=== PATIENT | male | born 1980 | race African-American/Black ===

== ENCOUNTER 2023-12-14 13:50 | Outpatient (POV) | payer MEDICARE, SELFPAY ==
[2023-12-14 13:52] VITALS: BP 139/67; PULSE 86; RESP 20; O2SAT 98; BMI 43.7
--- NOTE | 2023-12-14 13:59 | A.OFFVIS_ITS ---
HPI Data of Consult Patient: new to practice Consult date: 12/14/23 Requesting Physician: Salome Courtney APRN Primary Care Provider: Markell Sutherland Consult Narrative Reason for consult: Shoulder pain, left knee pain, right hand pain History of present illness: Mr. Salazar is a 43 year old male who presents today as a new patient. He is a referral from Dr. Markell Sutherland office. Today he rates his pain a 5 out of 10. Patient states his pain is in multiple areas including his left knee, bilateral shoulders with the left shoulder worse and his right hand. Patient states that these have been going on for years and progressively worsened. He states that his shoulder pain has been at least 15 years and is a chronic achy sensation that does radiate down his scapula and has in the past altered his range of motion. He states right now his range of motion has gotten better however he still has pain within the joint and going down his left scapula. He states his right hand has been going on for at least 6 years however the last 2 years have been progressively worse. He states that there is no specific injury or trauma that initially started this. He describes it as a constant soreness with intermittent sharp shooting pains and tightness. He states that it is oftentimes worse with increased activity or riding. Patient does state his left knee pain has been going on since he had his below the knee amputation and is not as much bothersome compared to his shoulder and hand pain. He does state that the pain does interfere with his ability to perform activities of daily living such as cooking and cleaning. Patient does state that he has had prior x-ray and MRI of his left shoulder that did show moderate to severe arthritis. He states this was done at [facility]. Patient denies any prior surgery on his shoulder or his neck. Patient states he has had injections in the past on a couple of different occasions however he is unsure whether or not if they were ever intra-articular injections or possibly just trigger point injections. He does state that it has been years since he has had any injections. Patient states in the past he did go to the pain clinic there in [place] however there was not much they could do for him and I offered opioid pain medications and he did not want to do that so he stopped going. Patient has tried [id number] medications such as Tylenol and ibuprofen along with heat and ice and topicals. Patient states that he is in kidney disease and no longer can tolerate any NSAIDs due to this. He states he did have a kidney transplant in the past and that he does follow-up regarding this every 3 to 4 months. Patient is interested in any help we may be able to provide.Patient is not on any scheduled medications. His Julio has been reviewed and is appropriate. CC: Salome Courtney APRN [facility] Disclaimer: The information contained in this section may have been updated after the patient was seen, as this information can be updated by other users. Surgical History (Updated 12/14/23 @ 14:12 by Leila Pittman RN) History of cholecystectomy Social History (Updated 12/14/23 @ 14:12 by Leila Pittman RN) Smoking Status: Former smoker alcohol intake: never current occupational status: unemployed Travel in the last 8 weeks: None Review of Systems Review of Systems Review of systems:: pertinent systems reviewed and negative unless documented below Review of systems (narrative): Review of Systems: General: No recent weight changes, no fever, no sleep disturbances Respiratory: No cough, no shortness of air, no recurring pulmonary infections Cardiovascular/peripheral vascular: No chest pain, no palpitations, no edema, no shortness of breath Gastrointestinal: No new onset incontinence, normal bowel movements reported Genitourinary: No new onset incontinence Musculoskeletal: Bilateral shoulder pain, left knee pain, right hand pain Psychiatric: [Normal mood/affect] Neurological: [Denies weakness in extremities], [denies balance issues] Meds Home Medications and Allergies Home Medications Medication Instructions Recorded Confirmed Type carvedilol 25 mg tablet 25 mg PO BID 12/14/23 12/14/23 History ergocalciferol (vitamin D2) 1,250 1,250 mcg PO WEEKLY 12/14/23 12/14/23 History mcg (50,000 unit) capsule hydrochlorothiazide 25 mg tablet 25 mg PO DAILY 12/14/23 12/14/23 History insulin glargine-yfgn 100 unit/mL 48 unit SQ DAILY 12/14/23 12/14/23 History (3 mL) subcutaneous pen (Semglee (insulin glargine-yfgn) Pen) magnesium oxide 400 mg (241.3 mg 400 mg PO BID 12/14/23 12/14/23 History magnesium) tablet nifedipine 60 mg tablet,extended 60 mg PO BID 12/14/23 12/14/23 History release pantoprazole 40 mg tablet,delayed 40 mg PO DAILY 12/14/23 12/14/23 History release semaglutide 0.25 mg or 0.5 mg (2 0.25 mg SQ WEEKLY 12/14/23 12/14/23 History mg/3 mL) subcutaneous pen injector (Ozempic) sodium bicarbonate 650 mg tablet 650 mg PO BID 12/14/23 12/14/23 History New Prescriptions to Start Prescriptions: Allergies Allergy/AdvReac Type Severity Reaction Status Date / Time lisinopril Allergy Verified 12/14/23 14:03 losartan Allergy Verified 12/14/23 14:03 Objective Narrative: Physical Exam: General: Alert and oriented x3, no acute distress, pleasant and cooperative Lungs: Respirations even and unlabored, symmetrical chest expansion Eyes: PERRL Musculoskeletal: Flexion and extension of bilateral shoulders somewhat guarded secondary to pain, [antalgic gait noted] Neurological: Speech clear, no gross sensory deficit Assessment and Plan *Assessment and plan (1) Right hand pain: Status: Acute Category: Medical Code(s): M79.641 - Pain in right hand (2) Bilateral shoulder pain: Status: Acute Qualifiers: Chronicity: chronic Qualified Code(s): M25.511 - Pain in right shoulder; M25.512 - Pain in left shoulder; G89.29 - Other chronic pain Category: Medical Code(s): M25.511 - Pain in right shoulder; M25.512 - Pain in left shoulder (3) Left knee pain: Status: Acute Qualifiers: Chronicity: chronic Qualified Code(s): M25.562 - Pain in left knee; G89.29 - Other chronic pain Category: Medical Code(s): M25.562 - Pain in left knee Plan Patient is experiencing worsening pain in his bilateral shoulders with limited range of motion. I have discussed with the patient that he may benefit from bilateral shoulder intra-articular injection. Risk and benefits were discussed with the patient and he would like to proceed forward with this plan of care. I have also discussed with the patient due to his shoulder and right hand symptoms that it may be coming from his cervical spine. Patient denied ever having any prior cervical imaging. I will order x-ray imaging with the plan to proceed forward with more advanced imaging at a later date. I will order the patient a compounded cream without diclofenac in it. Patient will be scheduled for bilateral shoulder intra-articular injections. Patient is a diabetic and I have counseled him to check his sugar prior to coming in for these injections and to take his medications as prescribed. Patient was counseled if his sugar is around 300 or above we will have to reschedule these injections. Patient acknowledges understanding and agrees with plan of care. Patient has been instructed to contact the clinic with any concerns before the next appointment. Dr. Steve has reviewed this note and agrees with this plan of care. This note was dictated using voice recognition software and make contain errors or omissions.
== END 2023-12-14 23:59 ==
PROVIDERS: PCP Family Medicine; Visit Provider Nurse Practitioner Family
DX: M79.641 Pain in right hand (principal); M25.511 Pain in right shoulder; M25.512 Pain in left shoulder; G89.29 Other chronic pain; M25.562 Pain in left knee
CPT/HCPCS: 99202; G0463

== ENCOUNTER 2023-12-21 14:01 | Outpatient (CLI) | payer MEDICARE, SELFPAY ==
--- NOTE | 2023-12-21 14:09 | XR_ITS ---
FINAL REPORT CLINICAL HISTORY: BUE RADICULOPATHY SYMPTOMS COMPARISON: None FINDINGS: 5 views of the cervical spine were obtained. There is no acute fracture. The vertebral heights are preserved. There is no subluxation. The neuroforamen appear patent. IMPRESSION: No acute process. Reviewed, Interpreted and Dictated by Elvin Sheldon MD Transcribed by KEVIN Mcnamara Authenticated and [facility]
== END 2023-12-21 23:59 | disposition home or self-care (01) ==
LOC: LAB 14:03
PROVIDERS: PCP Family Medicine; Visit Provider Nurse Practitioner Family
DX: M54.2 Cervicalgia (principal); M54.10 Radiculopathy, site unspecified
CPT/HCPCS: 72050

== ENCOUNTER 2024-01-05 08:42 | Day surgery (SDC) | payer MEDICARE, SELFPAY ==
[2024-01-05 08:52] VITALS: BP 147/79; PULSE 93; RESP 16; TEMP 36.6; O2SAT 96; BMI 43.7
[2024-01-05 09:12] VITALS: BP 135/86; PULSE 89; RESP 18; O2SAT 97
[2024-01-05] MEDS: methylPREDNISolone ACETATE 80MG/ML VIAL 80 MG (09:12)
[2024-01-05] MEDS: BUPIVACAINE 0.25% 10ML INJ 25 MG IJ (09:12)
[2024-01-05] MEDS: LIDOCAINE 1% 5ML PF VIAL 5 ML (09:12)
[2024-01-05 09:15] VITALS: BP 135/86; PULSE 89; RESP 18; O2SAT 97
[2024-01-05 09:16] VITALS: BP 166/88; PULSE 87; RESP 18; O2SAT 96
--- NOTE | 2024-01-05 09:32 | P.PCN_ITS ---
Procedure Date: 01/05/24 Time: 09:10 Anesthesiologist:: James Morataya CRNA Complications:: None Pre-procedure Diagnosis:: DJD bilateral shoulder joints. Chronic bilateral shoulder pain. Post-procedure Diagnosis:: Same. Indications for Procedure:: Patient is very pleasant 43-year-old male comes our clinic today for bilateral intra-articular shoulder injections. Patient has 5/5 strength of the bilateral arms. However, patient reports limited range of motion secondary to bilateral shoulder pain. He rates his pain today 6/10. Procedure Details:: Procedure Details: Bilateral shoulder intra-articular injection Informed consent was obtained risk and benefits of the procedure were explained to the patient. Patient was taken to the procedure room. The right shoulder was prepped using ChloraPrep. A 25-gauge needle was used first anteriorly, laterally, and then posteriorly to inject 10 mL bupivacaine 0.25% and Depo- Medrol 40 mg. Same procedure was carried out in the left shoulder. Patient tolerated procedure well with no complications. . Plan and Disposition:: She was discharged without incident.
== END 2024-01-05 09:16 | disposition home or self-care (01) ==
LOC: SC.PAINP 08:44
PROVIDERS: PCP Family Medicine; Visit Provider Nurse Anesthetist, Certified Registered
DX: M19.011 Primary osteoarthritis, right shoulder (principal); M19.012 Primary osteoarthritis, left shoulder; M25.512 Pain in left shoulder; M25.511 Pain in right shoulder; G89.29 Other chronic pain
CPT/HCPCS: 20610; J1010

== ENCOUNTER 2024-01-20 11:12 | Outpatient (POV) | payer MEDICARE, SELFPAY ==
[2024-01-20 11:27] VITALS: BP 147/79; PULSE 87; RESP 18; O2SAT 98; BMI 43.7
--- NOTE | 2024-01-20 11:37 | A.OFFVIS_ITS ---
[facility] Pain Management SOAP Note Subjective:: Patient is a pleasant 43-year-old male who presents today for follow-up of bilateral shoulder intra-articular injections and cervical x-ray. Today he rates his pain a 5 out of 10. Patient denies any new trauma or injury. He does state that he did have 50% improvement following these injections however it only worked while the numbing medication was ineffective. He states that the pain then went back to his baseline and has continued to be an issue since. Patient does state that it might not be as severe as what it originally had been however it does still cause worsening pain that interferes with his ability to perform activities of daily living. Patient states that years ago he did have some shoulder imaging done at [facility] for an orthopedic provider. He states he does not recall exactly what they were recommending at that time. He states he did also get the compounded cream however it did not seem to make any improvement overall. His Julio has been reviewed and is appropriate. Review of Systems: General: No recent weight changes, no fever, no sleep disturbances Respiratory: No cough, no shortness of air, no recurring pulmonary infections Cardiovascular/peripheral vascular: No chest pain, no palpitations, no edema, no shortness of breath Gastrointestinal: No new onset incontinence, normal bowel movements reported Genitourinary: No new onset incontinence Musculoskeletal: Bilateral shoulder pain Psychiatric: [Normal mood/affect] Neurological: [Denies weakness in extremities], [denies balance issues] Objective:: Physical Exam: General: Alert and oriented x3, no acute distress, pleasant and cooperative Lungs: Respirations even and unlabored, symmetrical chest expansion Eyes: PERRL Musculoskeletal: Flexion and extension of bilateral shoulders somewhat guarded secondary to pain, [antalgic gait noted] Neurological: Speech clear, no gross sensory deficit Assessment:: Neck pain, bilateral shoulder pain, right hand pain, left knee pain Plan:: Patient continues to experience significant pain throughout his bilateral shoulders with limited range of motion. I have discussed with the patient that due to it being years since he has had imaging we will order x-ray of his bilateral shoulders with the plan to proceed forward with advanced imaging at a later date. I have also discussed with the patient that he may benefit from bilateral suprascapular nerve blocks. Risk and benefits were discussed with patient and he would like to proceed forward with this plan of care. Patient has tried and failed conservative therapies including oral medication, heat and ice, topicals, continued at home exercising and stretching between injections with minimal relief. We will schedule the patient for bilateral suprascapular nerve blocks. Patient has been instructed to contact the clinic with any concerns before the next appointment. Dr. Steve has reviewed this note and agrees with this plan of care. This note was dictated using voice recognition software and make contain errors or omissions. [facility] Disclaimer: The information contained in this section may have been updated after the patient was seen, as this information can be updated by other users. Surgical History History of cholecystectomy Social History Smoking Status: Former smoker alcohol intake: never current occupational status: unemployed Travel in the last 8 weeks: None
== END 2024-01-20 23:59 | disposition home or self-care (01) ==
PROVIDERS: PCP Family Medicine; Visit Provider Nurse Practitioner Family
DX: M25.511 Pain in right shoulder (principal); M25.512 Pain in left shoulder; M54.2 Cervicalgia; M79.641 Pain in right hand
CPT/HCPCS: 99212; G0463

== ENCOUNTER 2024-01-20 12:18 | Outpatient (CLI) | payer MEDICARE, SELFPAY ==
--- NOTE | 2024-01-20 12:22 | XR_ITS ---
FINAL REPORT CLINICAL HISTORY: SHOULDER PAIN FINDINGS: Right shoulder Three views were obtained. There is no acute fracture or dislocation. There are mild degenerative changes of the AC and glenohumeral joints. No soft tissue abnormality is identified. IMPRESSION: Mild degenerative changes. Reviewed, Interpreted and Dictated by Bhargav Ramsey III, MD Transcribed by Naomie Ruiz Authenticated and [facility]
--- NOTE | 2024-01-20 12:24 | XR_ITS ---
FINAL REPORT CLINICAL HISTORY: SHOULDER PAIN FINDINGS: Left shoulder Three views were obtained. There is no acute fracture or dislocation. There are mild AC and moderate glenohumeral joint degenerative changes. No soft tissue abnormality is identified. IMPRESSION: Degenerative changes as above. Reviewed, Interpreted and Dictated by Bhargav Ramsey III, MD Transcribed by Naomie Ruiz Authenticated and [facility]
== END 2024-01-20 23:59 | disposition home or self-care (01) ==
LOC: RAD 12:19
PROVIDERS: PCP Family Medicine; Visit Provider Nurse Practitioner Family
DX: M54.2 Cervicalgia (principal); M25.511 Pain in right shoulder; M25.512 Pain in left shoulder; M79.641 Pain in right hand; M25.562 Pain in left knee
CPT/HCPCS: 73030; 99212; G0463

== ENCOUNTER 2024-02-23 13:24 | Day surgery (SDC) | payer MEDICARE, SELFPAY ==
[2024-02-23 13:36] VITALS: BP 119/67; PULSE 93; RESP 18; O2SAT 98; BMI 42.5
[2024-02-23] MEDS: LIDOCAINE 1% 5ML PF VIAL 5 ML (13:46)
[2024-02-23] MEDS: BUPIVACAINE 0.25% 10ML INJ 25 MG IJ (13:47)
[2024-02-23] MEDS: methylPREDNISolone ACETATE 80MG/ML VIAL 80 MG (13:47)
--- NOTE | 2024-02-23 13:47 | EXP.PAIN.PRO ---
Procedure Date: 02/23/24 Time: 13:40 Anesthesiologist:: James Morataya CRNA Complications:: None Pre-procedure Diagnosis:: DJD bilateral shoulder joints. Chronic bilateral shoulder pain. Post-procedure Diagnosis:: Same. Indications for Procedure:: Patient is a very pleasant 43-year-old male comes our clinic today for bilateral suprascapular nerve block. Patient reports good success with intra-articular shoulder injections some years ago. However, the last couple of injections he has received intra-articular into the bilateral shoulders has been unsuccessful. He reports bilateral shoulder pain with range of motion. Patient has 5/5 strength bilateral arms. He rates his pain 4/10. Procedure Details:: Details of the procedure explained to the patient. The patient taken procedure room placed in the sitting position. The area over this shoulder joint and scapula was cleaned using chlorhexidine's cleansing solution bilaterally. Using a 25-gauge inch and half needle the superior lateral margin of the left scapula was accessed with ease. After negative aspiration 4 cc of 0.25% Marcaine +4 cc of 1% lidocaine and 40 mg of Depo-Medrol was injected. The same procedure was carried out over the superior lateral margin of the right scapula. Patient tolerated procedure without difficulty. No complications. Plan and Disposition:: Patient was discharged without incident.
[2024-02-23 13:52] VITALS: BP 137/76; PULSE 90; RESP 16; O2SAT 98
== END 2024-02-23 13:53 | disposition home or self-care (01) ==
PROVIDERS: PCP Family Medicine; Visit Provider Nurse Anesthetist, Certified Registered
DX: M19.011 Primary osteoarthritis, right shoulder (principal); M19.012 Primary osteoarthritis, left shoulder; M25.511 Pain in right shoulder; M25.512 Pain in left shoulder; G89.29 Other chronic pain
CPT/HCPCS: 64418; J1010

== ENCOUNTER 2024-03-23 10:17 | Outpatient (POV) | payer MEDICARE, SELFPAY ==
[2024-03-23 10:26] VITALS: BP 139/81; PULSE 98; RESP 18; O2SAT 98; BMI 42.5
--- NOTE | 2024-03-23 10:26 | EXP.PAIN.SOA ---
[facility] Disclaimer: The information contained in this section may have been updated after the patient was seen, as this information can be updated by other users. Surgical History History of cholecystectomy Social History Smoking Status: Former smoker alcohol intake: never current occupational status: unemployed Travel in the last 8 weeks: None PM Subjective & Objective Subjective Subjective:: Patient is a pleasant 43-year-old male who presents today for follow-up of bilateral suprascapular nerve block on 02/23/2024. Today he rates his pain a 1 out of 10 in his shoulders and states he had at least 75% improvement. He states he has been able to increase his activity with overall decreased pain and that it is much more manageable. Today he does state that he is having more hand pain and rates it a 3 out of 10. Patient has tried the compounded cream on his hand and states it does not really seem to do a whole lot in that location. His Julio has been reviewed and is appropriate. Review of Systems: General: No recent weight changes, no fever, no sleep disturbances Respiratory: No cough, no shortness of air, no recurring pulmonary infections Cardiovascular/peripheral vascular: No chest pain, no palpitations, no edema, no shortness of breath Gastrointestinal: No new onset incontinence, normal bowel movements reported Genitourinary: No new onset incontinence Musculoskeletal: Bilateral hand pain, shoulder pain Psychiatric: [Normal mood/affect] Neurological: [Denies weakness in extremities], [denies balance issues] Pain at rest (0-10 scale): 1 Objective Objective:: Physical Exam: General: Alert and oriented x3, no acute distress, pleasant and cooperative Lungs: Respirations even and unlabored, symmetrical chest expansion Eyes: PERRL Musculoskeletal: Flexion and extension of bilateral shoulders somewhat guarded secondary to pain, [antalgic gait noted] Neurological: Speech clear, no gross sensory deficit Has patient had previous pain injection?: Yes Percent improvement in pain since last injection: 75% Conservative treatment options previously tried: Home exercise plan Length of treatment: Longer than 6 weeks Meds Home Medications and Allergies Home Medications Medication Instructions Recorded Confirmed Type carvedilol 25 mg tablet 25 mg PO BID 12/14/23 02/23/24 History ergocalciferol (vitamin D2) 1,250 1,250 mcg PO WEEKLY 12/14/23 02/23/24 History mcg (50,000 unit) capsule hydrochlorothiazide 25 mg tablet 25 mg PO DAILY 12/14/23 02/23/24 History insulin glargine-yfgn 100 unit/mL 48 unit SQ DAILY 12/14/23 02/23/24 History (3 mL) subcutaneous pen (Semglee (insulin glargine-yfgn) Pen) magnesium oxide 400 mg (241.3 mg 400 mg PO BID 12/14/23 02/23/24 History magnesium) tablet nifedipine 60 mg tablet,extended 60 mg PO BID 12/14/23 02/23/24 History release pantoprazole 40 mg tablet,delayed 40 mg PO DAILY 12/14/23 02/23/24 History release semaglutide 0.25 mg or 0.5 mg (2 0.25 mg SQ WEEKLY 12/14/23 02/23/24 History mg/3 mL) subcutaneous pen injector (Ozempic) sodium bicarbonate 650 mg tablet 650 mg PO BID 12/14/23 02/23/24 History New Prescriptions to Start Prescriptions: Allergies Allergy/AdvReac Type Severity Reaction Status Date / Time lisinopril Allergy Verified 01/05/24 08:53 losartan Allergy Verified 01/05/24 08:53 Assessment and Plan *Assessment and plan (1) Bilateral shoulder pain: Status: Acute Qualifiers: Chronicity: chronic Qualified Code(s): M25.511 - Pain in right shoulder; M25.512 - Pain in left shoulder; G89.29 - Other chronic pain Category: Medical Code(s): M25.511 - Pain in right shoulder; M25.512 - Pain in left shoulder (2) Left knee pain: Status: Acute Qualifiers: Chronicity: chronic Qualified Code(s): M25.562 - Pain in left knee; G89.29 - Other chronic pain Category: Medical Code(s): M25.562 - Pain in left knee (3) Right hand pain: Status: Acute Category: Medical Code(s): M79.641 - Pain in right hand Plan Patient has had significant improvement and does not require any additional injection therapy at this time. Patient will return to clinic in 1 month for reevaluation of symptoms and plan of care. Patient has been instructed to contact the clinic with any concerns before the next appointment. Dr. Steve has reviewed this note and agrees with this plan of care. This note was dictated using voice recognition software and make contain errors or omissions.
== END 2024-03-23 23:59 | disposition home or self-care (01) ==
LOC: SC.PAIN 10:18
PROVIDERS: PCP Family Medicine; Visit Provider Nurse Practitioner Family
DX: M25.511 Pain in right shoulder (principal); M25.512 Pain in left shoulder; G89.29 Other chronic pain; M25.562 Pain in left knee; M79.641 Pain in right hand
CPT/HCPCS: 99212; G0463

== ENCOUNTER 2024-04-20 13:07 | Outpatient (POV) | payer MEDICARE, SELFPAY ==
--- NOTE | 2024-04-20 13:20 | EXP.PAIN.SOA ---
[facility] Disclaimer: The information contained in this section may have been updated after the patient was seen, as this information can be updated by other users. Surgical History History of cholecystectomy Social History Smoking Status: Former smoker alcohol intake: never current occupational status: other Travel in the last 8 weeks: None PM Subjective & Objective Subjective Subjective:: Patient is a pleasant 44-year-old male who presents today for 1 month follow-up. Today he rates his pain a 3 out of 10. Patient denies any new trauma or injury. He does state that he still feels that he has bilateral suprascapular nerve blocks done in February are still helping. He does state that the pain has increased a little bit from the last visit however it is still not as severe as what it was initially. Patient was prescribed compounded cream and states that he will sometimes use this however he did not notice significant relief. His Julio has been reviewed and is appropriate. Review of Systems: General: No recent weight changes, no fever, no sleep disturbances Respiratory: No cough, no shortness of air, no recurring pulmonary infections Cardiovascular/peripheral vascular: No chest pain, no palpitations, no edema, no shortness of breath Gastrointestinal: No new onset incontinence, normal bowel movements reported Genitourinary: No new onset incontinence Musculoskeletal: Bilateral shoulder pain Psychiatric: [Normal mood/affect] Neurological: [Denies weakness in extremities], [denies balance issues] Pain at rest (0-10 scale): 3 Objective Objective:: Physical Exam: General: Alert and oriented x3, no acute distress, pleasant and cooperative Lungs: Respirations even and unlabored, symmetrical chest expansion Eyes: PERRL Musculoskeletal: Flexion and extension of bilateral shoulders somewhat guarded secondary to pain, [antalgic gait noted] Neurological: Speech clear, no gross sensory deficit Has patient had previous pain injection?: No Conservative treatment options previously tried: Home exercise plan Length of treatment: Longer than 6 weeks Meds Home Medications and Allergies Home Medications ?Medication ?Instructions ?Recorded ?Confirmed ?Type carvedilol 25 mg tablet 25 mg PO BID 12/14/23 03/23/24 History ergocalciferol (vitamin D2) 1,250 1,250 mcg PO WEEKLY 12/14/23 03/23/24 History mcg (50,000 unit) capsule hydrochlorothiazide 25 mg tablet 25 mg PO DAILY 12/14/23 03/23/24 History insulin glargine-yfgn 100 unit/mL 48 unit SQ DAILY 12/14/23 03/23/24 History (3 mL) subcutaneous pen (Semglee (insulin glargine-yfgn) Pen) magnesium oxide 400 mg (241.3 mg 400 mg PO BID 12/14/23 03/23/24 History magnesium) tablet nifedipine 60 mg tablet,extended 60 mg PO BID 12/14/23 03/23/24 History release pantoprazole 40 mg tablet,delayed 40 mg PO DAILY 12/14/23 03/23/24 History release semaglutide 0.25 mg or 0.5 mg (2 0.25 mg SQ WEEKLY 12/14/23 03/23/24 History mg/3 mL) subcutaneous pen injector (Ozempic) sodium bicarbonate 650 mg tablet 650 mg PO BID 12/14/23 03/23/24 History New Prescriptions to Start Prescriptions: Allergies Allergy/AdvReac Type Severity Reaction Status Date / Time lisinopril Allergy Verified 01/05/24 08:53 losartan Allergy Verified 01/05/24 08:53 Assessment and Plan *Assessment and plan (1) Bilateral shoulder pain: Status: Acute Qualifiers: Chronicity: chronic Qualified Code(s): M25.511 - Pain in right shoulder; M25.512 - Pain in left shoulder; G89.29 - Other chronic pain Category: Medical Code(s): M25.511 - Pain in right shoulder; M25.512 - Pain in left shoulder Plan Patient is still doing well overall from his suprascapular nerve blocks on February 22. Patient will return to clinic in 3 months for reevaluation of symptoms and plan of care. Patient has been instructed to contact the clinic with any concerns before the next appointment. Dr. Steve has reviewed this note and agrees with this plan of care. This note was dictated using voice recognition software and make contain errors or omissions. All injections are used with Lidocaine or Bupivacaine and Depo Medrol.
[2024-04-20 13:57] VITALS: BP 138/82; PULSE 107; RESP 18; O2SAT 98; BMI 43.7
== END 2024-04-20 23:59 | disposition home or self-care (01) ==
LOC: SC.PAIN 13:07
PROVIDERS: PCP Family Medicine; Visit Provider Nurse Practitioner Family
DX: M25.511 Pain in right shoulder (principal); M25.512 Pain in left shoulder; G89.29 Other chronic pain; Z87.891 Personal history of nicotine dependence; Z79.899 Other long term (current) drug therapy
CPT/HCPCS: 99212; G0463